=== PATIENT | female | born 1990 | race Caucasian/White ===

== ENCOUNTER 2017-08-15 17:10 | Emergency (ER) | payer OTHER ==
[2017-08-15 17:19] VITALS: BMI 28.5
--- NOTE | 2017-08-15 17:20 | PDOC ---
Rapid Medical Evaluation Time Seen by Provider: 08/15/17 17:16 Medical Evaluation: Allergies Allergy/AdvReac Type Severity Reaction Status Date / Time No Known Drug Allergies Allergy Verified 08/15/17 17:15 apples Allergy Severe Swelling Uncoded 08/15/17 17:15 kiwi Allergy Severe Swelling Uncoded 08/15/17 17:15 peaches Allergy Severe Swelling Uncoded 08/15/17 17:15 plums Allergy Severe Swelling Uncoded 08/15/17 17:15 strawberries Allergy Severe Swelling Uncoded 08/15/17 17:15 08/15/17 17:16 I have performed a brief in-person evaluation of this patient. The patient presents with a chief complaint of: Abd cramping today, no vag bleed , (s/p 1 spon AB), ~27 week , f/u with at [id number] Pertinent physical exam findings:Stable I have ordered the following:nothing, gets transferred to L&D The patient will proceed to the ED for further evaluation Discharge Disposition - Diagnosis Abdominal pain Qualifiers: Abdominal location: unspecified location Qualified Code(s): R10.9 - Unspecified abdominal pain - Referrals - Patient Instructions - Post Discharge Activity
[2017-08-15] MEDS ORDERED: DEXTROSE 5%-LACTATED RINGERS 500 ML IV ONE (18:10)
[2017-08-15 18:33] VITALS: BP 109/68; PULSE 86; TEMP 98.1
[2017-08-15] MEDS ORDERED: DEXTROSE 5%-LACTATED RINGERS 1,000 ML IV SCH (19:10)
[2017-08-15 20:20] LABS: URINE APPEARANCE CLEAR; URINE BILIRUBIN NEGATIVE (<2.0 mg/dL); URINE COLOR YELLOW; URINE GLUCOSE (UA) NEGATIVE (NEGATIVE); URINE KETONE 1+ (NEGATIVE); URINE LEUK ESTERASE NEGATIVE (NEGATIVE); URINE NITRITE NEGATIVE (NEGATIVE); URINE PROTEIN NEGATIVE (NEGATIVE); URINE UROBILINOGEN NEGATIVE mg/dL (0.2-1.0)
== END 2017-08-15 21:20 | disposition home or self-care (01) ==
LOC: JER 17:10
DX: O26.892 Other specified pregnancy related conditions, second trimester (principal); R10.9 Unspecified abdominal pain; Z3A.27 27 weeks gestation of pregnancy
CPT/HCPCS: 76801-TC; 76817-TC; 81003; 87086; 99281-25

== ENCOUNTER 2017-10-29 09:37 | Inpatient (IN) | payer OTHER ==
[~2017-10-29 09:37] MED LIST: CITRIC ACID/SODIUM CITRATE 30 ML UNIT-DOSE CUP PO ONE; ELECTROLYTE-148 SOLN 1,000 ML IV SCH
[2017-10-29] MEDS ORDERED: ELECTROLYTE-148 SOLN 1,000 ML IV SCH (09:59)
[2017-10-29 10:34] VITALS: BMI 31.4
[2017-10-29] MEDS ORDERED: PHENYLEPHRINE HCL 10 MG/1 ML SINGLE DOSE VIAL ONE (10:35)
[2017-10-29] MEDS ORDERED: ceFAZolin SODIUM 1 GM VIAL ONE (10:35)
[2017-10-29] MEDS ORDERED: SUCCINYLCHOLINE CHLORIDE 200 MG/10 ML VIAL ONE (10:36)
[2017-10-29] MEDS ORDERED: ePHEDrine SULFATE 50 MG/1 ML AMPULE ONE (10:36)
[2017-10-29] MEDS ORDERED: PROPOFOL 20 ML ONE (10:36)
[2017-10-29] MEDS ORDERED: morphine SULFATE/Preservative Free 0.5 MG/ML (1cc Syringe) ONE (10:36)
[2017-10-29] MEDS ORDERED: OXYTOCIN 20 UNITS in 0.9% NS 20 UNIT/1,000 ML INFUS.BAG IV ONE ×2 (10:54→14:41)
[2017-10-29] MEDS ORDERED: TUBERCULIN PPD 5 TU/0.1ML SYRINGE (IN PATIENT USE ONLY) ID ONE (11:15)
--- NOTE | 2017-10-29 11:39 | HP ---
Past Medical History - Admission Chief Complaint: Here for repeat c section History of Present Illness: 27 y/o female with SIUP at 37.2 weeks here for repeat c section. Pt diagnosed with cholestasis of (Bile acids 66) and pt desires sterillization/tubal ligation. Pt also wtih h/o anemia, s/p iron transfusions, Hgb 11.7 preop. Otherwise uncomlpicated. H/O c section X 2 for oligohydramnios. History Source: Patient, Medical Record - Past Medical History Cardiovascular: No: AFIB, CAD, HTN Pulmonary: No: Asthma, COPD Gastrointestinal: No: GERD Hepatobiliary: No: Hepatitis B, Hepatitis C Renal/: No: Renal Failure, UTI Reproductive: No: Ectopic , PID ...: 4 ...Para: 2 ...Term: 1 ...: 1 ...Spon : 1 ...Induced : 0 ...Multiple Gestation: 0 ...LMP: 02/10/17 ... Weeks Gestation by Dates: 37.2 ...EDC by Dates: 11/17/17 ...EDC by Sono: 11/14/17 Heme/Onc: Yes: Anemia Infectious Disease: No: HIV, MRSA, STD's Psych: No: Anxiety, Bipolar, Panic - Past Surgical History Past Surgical History: Yes: Hx Myomectomy: No Hx Transabdominal Cerclage: No - Smoking History Smoking history: Never smoked Have you smoked in the past 12 months: No - Alcohol/Substance Use Hx Alcohol Use: No - Social History History of Recent Travel: No Home Medications - Allergies Allergies/Adverse Reactions: Allergies Allergy/AdvReac Type Severity Reaction Status Date / Time No Known Drug Allergies Allergy Verified 10/29/17 10:42 apples Allergy Severe Swelling Uncoded 10/29/17 10:42 kiwi Allergy Severe Swelling Uncoded 10/29/17 10:42 peaches Allergy Severe Swelling Uncoded 10/29/17 10:42 plums Allergy Severe Swelling Uncoded 10/29/17 10:42 strawberries Allergy Severe Swelling Uncoded 10/29/17 10:42 - Home Medications Home Medications: Ambulatory Orders Ferrous Sulfate [Iron] 325 mg PO DAILY 10/21/17 Vit No.130/Iron/Folic [ Vitamins] 1 each PO DAILY 10/21/17 Review of Systems - Review of Systems Constitutional: reports: No Symptoms Eyes: reports: No Symptoms HENT: reports: No Symptoms Neck: reports: No Symptoms Cardiovascular: reports: No Symptoms Respiratory: reports: No Symptoms Gastrointestinal: reports: No Symptoms Genitourinary: reports: No Symptoms Breasts: reports: No Symptoms Reported Musculoskeletal: reports: No Symptoms Integumentary: reports: No Symptoms Neurological: reports: No Symptoms Endocrine: reports: No Symptoms Hematology/Lymphatic: reports: No Symptoms Psychiatric: reports: No Symptoms Physical Exam - Maternity Vital Signs: Vital Signs Temperature 97.8 F 10/29/17 09:37 Pulse Rate 101 H 10/29/17 09:37 Respiratory Rate 20 10/29/17 09:37 Blood Pressure 105/70 10/29/17 09:37 O2 Sat by Pulse Oximetry (%) Constitutional: Yes: Well Nourished, No Distress, Calm Eyes: Yes: Conjunctiva Clear, EOM Intact HENT: Yes: Atraumatic Neck: Yes: Supple Cardiovascular: Yes: Regular Rate and Rhythm Lungs: Clear to auscultation - Abdominal Exam/OB Fundal Height: 38 Number of Fetuses: Single Presentation: Vertex Contractions: No Category: I Accelerations: Uniform Decelerations: None - Vaginal Exam/OB Vaginal Bleediing: No Speculum Exam: No Amniotic Membrane Status: Intact Presentation: Vertex/Position - Physical Exam Psychiatric: Yes: Alert, Oriented Hemorrhage Risk Assessment - Risk Factors Medium Risk Factors: Yes: Prior , uterine surgery,or multiple laparotomies High Risk Factors: Yes: None Risk Score: 1 Risk Level: Medium Risk Problem List - Problems (1) Cholestasis during in third trimester Code(s): O26.613 - LIVER AND BILIARY TRACT DISORD IN , THIRD TRIMESTER ; K83.1 - OBSTRUCTION OF BILE DUCT (2) Encounter for sterilization Code(s): Z30.2 - ENCOUNTER FOR STERILIZATION Assessment/Plan 27 y/o with SIUP at 37.2 weeks. for repeat section and tubal ligation at 37.2 weeks for cholestasis of AFVSS FHTs reactive cholestasis of - can stop ursodiol s/p surgery h/o anemia NPO SCDs consents signed
[2017-10-29] MEDS ORDERED: ONDANSETRON 4 MG/2 ML VIAL IVPUSH PRN (12:20)
[2017-10-29] MEDS ORDERED: morphine SULFATE/Preservative Free 0.5 MG/ML (1cc Syringe) SPIN ONE (12:20)
[2017-10-29] MEDS ORDERED: METHYLERGONOVINE MALEATE 0.2 MG/1 ML AMP IM PRN (12:32)
--- NOTE | 2017-10-29 12:32 | OP ---
Operative Note - Note: Operative Date: 10/29/17 Pre-Operative Diagnosis: prior c section X 2, desire for sterilization Operation: repeat delivery, bilateral tubal ligation (modified lashawn) Findings: normal b/l tubes and ovaries Surgeon: Alexsandra Olivares Hunting [employer] Fishing Guide: Baldomero [place] Anesthesiologist/SPLITTER HEAD: Alejandro Martinez Anesthesia: Spinal Specimens Removed: placenta Estimated Blood Loss (mls): 600 Operative Report Dictated: Yes
--- NOTE | 2017-10-29 13:47 | OP ---
DATE OF OPERATION: 10/29/2017 PREOPERATIVE DIAGNOSIS: Single intrauterine at 37 and 0.2 weeks, prior section x2, desire for permanent sterilization and cholestasis of . POSTOPERATIVE DIAGNOSIS: Single intrauterine at 37 and 0.2 weeks, prior section x2, desire for permanent sterilization and cholestasis of . PROCEDURE: Repeat low transverse section, bilateral tubal ligation using modified Avel technique. SURGEON: Alexsandra Ellis DO POOL INSTALLER: VINI Niño. ANESTHESIA: Spinal by Alejandro Martinez MD COMPLICATIONS: None. ESTIMATED BLOOD LOSS: 600 mL. SPECIMENS: Placenta and a portion of left and right fallopian tubes. COUNTS: Sponge, needle, and instrument counts correct. DISPOSITION: Stable to PACU. BRIEF HISTORY AND PROCEDURE: The patient is a 27-year-old G4, P2 female with a history of 2 prior sections who has been here in the office throughout her and elected to undergo a repeat section. The patient also had expressed the desire for permanent sterilization and consents for bilateral tubal ligation were signed. The patient was admitted to [facility] on October 29, 2017 where consents were reconfirmed. The patient was admitted at 37 weeks for delivery secondary to cholestasis of . The patient was then taken back to the operating room and given spinal anesthesia by Dr. Alejandro Martinez. A Urena catheter was placed under sterile condition. She was placed in the dorsal supine position and a hard time-out was performed. A Pfannenstiel incision was created on the skin with a scalpel and carried through the underlying layer of rectus fascia with the scalpel. The fascia was then incised on either side of the midline with the scalpel and the fascial incision was extended in the superior layer direction sharply. The fascia was tented upwards and dissected off the underlying layer of the rectus muscle sharply and the musculature was identified and then elevated with Josselin clamps and sharply with the knife. The peritoneum was entered sharply and carefully dissected well to allow for delivery. The bladder blade was then inserted. A lower uterine segment window was appreciated. The transverse incision in the lower uterine segment was completed approximately 3 to 4 cm above the uterine window. This incision was extended in the superolateral direction bluntly. The infant was then delivered from the ADRIANO position without difficulty. Bilateral shoulders were delivered without difficulty. The cord was clamped twice and cut in between and the was taken to the warmer to be assessed by the Neonatology staff where it received Apgars scores of 9 and 9. The placenta was then delivered intact with a 3 vessel cord. The uterus was exteriorized and cleared of all amniotic membrane and debrided with a dry lap sponge. The hysterotomy was reapproximated with a double layered closure using 0-Biosyn in 2 running locked layers. The right fallopian tube was identified and traced to the fimbriated end, elevated with a Kalee clamp and the mid portion was tied off with free ties and excised. The same was repeated in the left fallopian tube. Bilateral ovaries were noted to be within normal limits. The posterior cul-de-sac was suctioned. The uterus was placed back into the abdomen. Bilateral gutters were inspected and cleared of all debris. The hysterotomy as well as both tubal ligation sites were noted to be hemostatic. The peritoneum was then reapproximated using 2-0 Chromic in a running fashion. The musculature was reapproximated with 2 interrupted sutures. The fascia was reapproximated using 1 Vicryl in a running fashion. The subcutaneous tissue was irrigated and reapproximated with several interrupted suture using 1 Vicryl and the skin was reapproximated subcuticularly with 3-0 Vicryl suture and Steri-Strips were applied. The patient tolerated the procedure well and was recovering in stable condition in the recovery room in labor and delivery at the time of this dictation. Sponge needle and instrument counts were reported as correct after the case. ALEXSANDRA ELLIS DO /[id number] MTDHema
[2017-10-29] MEDS: OXYTOCIN 20 UNITS in 0.9% NS 20 UNIT/1,000 ML INFUS.BAG IV SCH (14:51)
[2017-10-29] MEDS ORDERED: IBUPROFEN 800 MG/8 ML IJ IVPB PRN (16:49)
[2017-10-30] MEDS: OXYTOCIN 20 UNITS in 0.9% NS 20 UNIT/1,000 ML INFUS.BAG IV SCH ×2 (00:59→20:05)
[2017-10-30] MEDS: SIMETHICONE 80 MG TAB.CHEW (FP) PO PRN ×4 (05:55→21:31)
[2017-10-30] MEDS: IBUPROFEN 600 MG TABLET (FP) PO PRN ×4 (05:58→21:31)
[2017-10-30] MEDS: oxyCODONE HCL 5 MG TABLET PO PRN ×4 (05:58→21:32)
[2017-10-30 09:01] LABS: BASO % 0.3 % (0-2.0); EOS % 0.5 % (0-4.5); HEMOGLOBIN 9.7 GM/dL (10.7-15.3); LYMPH % 21.3 % (8-40); MCH 28.6 pg (25.7-33.7); MCHC 33.5 g/dl (32.0-36.0); MEAN CELL VOLUME 85.2 fl (80-96); MEAN PLT VOLUME 7.4 fl (7.5-11.1); MONO % 4.8 % (3.8-10.2); NEUT % 73.1 % (42.8-82.8); PLATELET COUNT 234 K/MM3 (134-434); RBC 3.41 M/mm3 (3.60-5.2); RDW 16.2 % (11.6-15.6); WHITE BLOOD COUNT 8.6 K/mm3 (4.0-10.0)
--- NOTE | 2017-10-30 09:48 | PN ---
Post Progress Note - Subjective Subjective: Pt seen/evaluated and doing well. Tolerating clears. Ambulating, voiding, no flatus yet. VB minimal. Type of Delivery: Repeat C/S Vital Signs: Vital Signs Temperature 97.9 F 10/30/17 06:00 Pulse Rate 71 10/30/17 06:00 Respiratory Rate 18 10/30/17 07:00 Blood Pressure 123/75 10/30/17 06:00 O2 Sat by Pulse Oximetry (%) 100 10/29/17 14:30 Uterus: Yes: Fundus Firm Incision: Yes: Dressing dry and intact Abdomen/GI: Yes: Abdomen soft Lochia: Yes: Rubra Lochia, amount: Small Extremities: Yes: Calves non-tender. No: Edema Perineum: Yes: Intact Activity: Ambulating - Labs Labs: CBC WBC 8.6 K/mm3 (4.0-10.0) 10/30/17 08:47 RBC 3.41 M/mm3 (3.60-5.2) L 10/30/17 08:47 Hgb 9.7 GM/dL (10.7-15.3) L 10/30/17 08:47 Hct 29.0 % (32.4-45.2) L D 10/30/17 08:47 MCV 85.2 fl (80-96) 10/30/17 08:47 MCH 28.6 pg (25.7-33.7) 10/30/17 08:47 MCHC 33.5 g/dl (32.0-36.0) 10/30/17 08:47 RDW 16.2 % (11.6-15.6) H 10/30/17 08:47 Plt Count 234 K/MM3 (134-434) 10/30/17 08:47 MPV 7.4 fl (7.5-11.1) L 10/30/17 08:47 Absolute Neuts (auto) 6.3 # 10/30/17 08:47 Neutrophils % 73.1 % (42.8-82.8) 10/30/17 08:47 Lymphocytes % 21.3 % (8-40) 10/30/17 08:47 Monocytes % 4.8 % (3.8-10.2) 10/30/17 08:47 Eosinophils % 0.5 % (0-4.5) 10/30/17 08:47 Basophils % 0.3 % (0-2.0) 10/30/17 08:47 Nucleated RBC % 0 % (0-0) 10/30/17 08:47 Problem List - Problems (1) Cholestasis during in third trimester Code(s): O26.613 - LIVER AND BILIARY TRACT DISORD IN , THIRD TRIMESTER ; K83.1 - OBSTRUCTION OF BILE DUCT (2) Encounter for sterilization Code(s): Z30.2 - ENCOUNTER FOR STERILIZATION Assessment/Plan Advance diet as tolerated PO pain meds routine post c section care pt doing well
[2017-10-30] MEDS: FERROUS SO4 325 MG TABLET (FP) PO SCH ×2 (11:16→21:31)
[2017-10-30] MEDS: PRENATAL VITAMINS W/ FOLIC ACID TABLET (FP) PO SCH (11:17)
--- NOTE | 2017-10-30 11:46 | PN ---
Progress Note (short form) - Note Progress Note: Anesthesia POD#1 S/P and BTL under spinal A and Duramorph VSS,no N/V,legs are strong,pain is under control. No complications seen. Sydney Clark MD.
[2017-10-30] MEDS ORDERED: BISACODYL 10 MG SUPP.RECT RC PRN (12:32)
[2017-10-31] MEDS: oxyCODONE HCL 5 MG TABLET PO PRN ×6 (01:09→23:30)
[2017-10-31] MEDS: SIMETHICONE 80 MG TAB.CHEW (FP) PO PRN ×6 (01:10→23:29)
[2017-10-31] MEDS: IBUPROFEN 600 MG TABLET (FP) PO PRN ×6 (01:10→23:30)
[2017-10-31] MEDS: FERROUS SO4 325 MG TABLET (FP) PO SCH ×2 (09:06→21:08)
[2017-10-31] MEDS: PRENATAL VITAMINS W/ FOLIC ACID TABLET (FP) PO SCH (09:06)
--- NOTE | 2017-10-31 13:23 | PN ---
Post Progress Note - Subjective Subjective: Came to see/evaluate pt. Pt asleep upon my arrival. NO acute events overnight per nursing, doing well. Pain controlled, tolerating diet. Ambulating, voiding, VB stable/moderate and decreasing per nursing. Type of Delivery: Repeat C/S Vital Signs: Vital Signs Temperature 97.4 F L 10/31/17 08:18 Pulse Rate 94 H 10/31/17 08:18 Respiratory Rate 18 10/31/17 08:18 Blood Pressure 115/69 10/31/17 08:18 O2 Sat by Pulse Oximetry (%) 100 10/29/17 14:30 Uterus: Yes: Fundus Firm Incision: Yes: Sutures intact Abdomen/GI: Yes: Abdomen soft Lochia: Yes: Rubra Lochia, amount: Small Perineum: Yes: Intact Activity: Ambulating - Labs Labs: CBC WBC 8.6 K/mm3 (4.0-10.0) 10/30/17 08:47 RBC 3.41 M/mm3 (3.60-5.2) L 10/30/17 08:47 Hgb 9.7 GM/dL (10.7-15.3) L 10/30/17 08:47 Hct 29.0 % (32.4-45.2) L D 10/30/17 08:47 MCV 85.2 fl (80-96) 10/30/17 08:47 MCH 28.6 pg (25.7-33.7) 10/30/17 08:47 MCHC 33.5 g/dl (32.0-36.0) 10/30/17 08:47 RDW 16.2 % (11.6-15.6) H 10/30/17 08:47 Plt Count 234 K/MM3 (134-434) 10/30/17 08:47 MPV 7.4 fl (7.5-11.1) L 10/30/17 08:47 Absolute Neuts (auto) 6.3 # 10/30/17 08:47 Neutrophils % 73.1 % (42.8-82.8) 10/30/17 08:47 Lymphocytes % 21.3 % (8-40) 10/30/17 08:47 Monocytes % 4.8 % (3.8-10.2) 10/30/17 08:47 Eosinophils % 0.5 % (0-4.5) 10/30/17 08:47 Basophils % 0.3 % (0-2.0) 10/30/17 08:47 Nucleated RBC % 0 % (0-0) 10/30/17 08:47 Other Findings, Remarks: exam per nursing Problem List - Problems (1) Cholestasis during in third trimester Code(s): O26.613 - LIVER AND BILIARY TRACT DISORD IN , THIRD TRIMESTER ; K83.1 - OBSTRUCTION OF BILE DUCT (2) Encounter for sterilization Code(s): Z30.2 - ENCOUNTER FOR STERILIZATION Assessment/Plan POD#2 s/p repeat c section and tubal sterilization regular PO pain meds routine post c section care pt doing well discharge home in a.m. if stable
[2017-10-31] MEDS: SENNOSIDES/DOCUSATE COMBO (SENNA PLUS) TABLET (UD) PO SCH (21:10)
[2017-11-01] MEDS: SIMETHICONE 80 MG TAB.CHEW (FP) PO PRN (03:35)
[2017-11-01] MEDS: oxyCODONE HCL 5 MG TABLET PO PRN (03:36)
[2017-11-01] MEDS: IBUPROFEN 600 MG TABLET (FP) PO PRN (03:37)
[2017-11-01 07:31] VITALS: BP 95/51; PULSE 70; TEMP 98.3
[2017-11-01 08:08] LABS: BASO % 0.3 % (0-2.0); HEMATOCRIT 27.5 % (32.4-45.2); HEMOGLOBIN 9.2 GM/dL (10.7-15.3); LYMPH % 33.6 % (8-40); MCH 28.7 pg (25.7-33.7); MCHC 33.7 g/dl (32.0-36.0); MEAN CELL VOLUME 85.3 fl (80-96); MEAN PLT VOLUME 7.5 fl (7.5-11.1); MONO % 5.7 % (3.8-10.2); NEUT % 57.4 % (42.8-82.8); PLATELET COUNT 277 K/MM3 (134-434); RBC 3.22 M/mm3 (3.60-5.2); RDW 16.1 % (11.6-15.6); WHITE BLOOD COUNT 5.9 K/mm3 (4.0-10.0)
--- NOTE | 2017-11-01 08:22 | DS ---
Physical Exam-MANAGER OF NETWORK Vital Signs: Vital Signs Temperature 98.3 F 11/01/17 07:29 Pulse Rate 70 11/01/17 07:29 Respiratory Rate 18 11/01/17 07:29 Blood Pressure 95/51 11/01/17 07:29 O2 Sat by Pulse Oximetry (%) 100 10/29/17 14:30 Constitutional: Yes: Well Nourished Eyes: Yes: Conjunctiva Clear HENT: Yes: Atraumatic Neck: Yes: Supple Cardiovascular: Yes: Regular Rate and Rhythm Respiratory: Yes: Regular Gastrointestinal: Yes: Normal Bowel Sounds Pelvis: Yes: WNL External Genitalia: Yes: Normal Vaginal Exam: Yes: Normal Cervix: Yes: Normal Uterus: Yes: Firm Wound/Incision: Yes: Clean/Dry, Well Approximated Neurological: Yes: Alert, Oriented ...Motor Strength: WNL Psychiatric: Yes: Alert, Oriented Labs: CBC, BMP 11/01/17 06:00 Delivery - Delivery Type of Anesthesia: Spinal Episiotomy/Laceration: None EBL (cc): 600 Delivery, Single - Stages of Labor Date of Delivery: 10/29/17 Time of Delivery: 11:59 Time Placenta Delivered: 13:00 - Condition of Cutter Inspector/Heel Seat Pounder Present: Yes Name: Shahzad Lion Infant Gender: Male Weight: 7 lb 13 oz Position: Left, OA Total Hours ROM (Hrs/Mins): 2 mins - 1 Minute Total Score: 9 5 Minutes Total Score: 9 - [place] Feeding Plan Initial Plan: Exclusive throughout hospitalization Discharge Summary Reason For Visit: Current Active Problems Cholestasis during in third trimester (Acute) Encounter for sterilization (Acute) Procedures: Principal: Repeat Hospital Course: Routine post op care Condition: Good - Instructions Diet, Activity, Other Instructions: Physical activity Resume your normal everyday activity as tolerated no heavy lifting or strenuous exercise until seen by your surgeon. You may walk unlimited amounts and climb stairs. You may resume driving the car when you feel safe and comfortable behind the wheel. No sexual activity as instructed. Wound care . If there are tapes on the skin leave them in place. They will peel off in the next 7 to 10 days. Do Not Peel them off. You may shower the day after surgery. If there are tapes present on the skin, you may shower over them. Diet There are no dietary restrictions. Eat healthy, high-fiber foods. Drink 6 to 8 glasses of liquid each day. This will assist in keeping your bowels regular. Pain management You may take Tylenol or Ibuprofen (for example, Motrin, Advil etc.)for mild pain. If any prescription medication is ordered should be taken as prescribed for moderate to severe pain. Call MD for any of the following: Severe pain not relieved by medication Fever of 101 or higher Excessive bleeding or drainage on dressing Inability to urinate Disposition: HOME - Home Medications Comprehensive Discharge Medication List: Ambulatory Orders Ferrous Sulfate [Iron] 325 mg PO DAILY 10/21/17 Vit No.130/Iron/Folic [ Vitamins] 1 each PO DAILY 10/21/17 Ibuprofen [Motrin -] 600 mg PO QID PRN #28 tablet 10/31/17 Oxycodone HCl/Acetaminophen [Percocet 5-325 mg Tablet -] 1 tab PO Q4H #30 tablet MDD 6 10/31/17
[2017-11-01] MEDS: FERROUS SO4 325 MG TABLET (FP) PO SCH (10:31)
[2017-11-01] MEDS: PRENATAL VITAMINS W/ FOLIC ACID TABLET (FP) PO SCH (10:31)
[2017-11-01] MEDS: SENNOSIDES/DOCUSATE COMBO (SENNA PLUS) TABLET (UD) PO SCH (10:31)
--- NOTE | 2017-11-07 17:52 | PATH ---
Surgical Pathology Report Patient Name: MAT SHEIKH [facility]. Rec. #: [id number] /Age/Gender: 1990 (Age: 27) / F Account: [id number] Location: [facility] OBS/FUDGER Taken: 10/29/2017 Received: 10/30/2017 Reported: 11/07/2017 Physicians: Alexsandra Olivares M.D. Specimen(s) Received A: PLACENTA B: RIGHT FALLOPIAN TUBE C: LEFT FALLOPIAN TUBE Clinical History 37.5 weeks gestation, repeat History of iron infusion during Final Diagnosis A. PLACENTA, SECTION: 495 g THIRD TRIMESTER PLACENTA WITH TRIVASCULAR UMBILICAL CORD AND UNREMARKABLE PLACENTAL MEMBRANES. B. FALLOPIAN TUBE, RIGHT, PARTIAL EXCISION: FULL LUMINAL PORTION OF UNREMARKABLE FALLOPIAN TUBE. C. FALLOPIAN TUBE, LEFT, PARTIAL EXCISION: FULL LUMINAL PORTION OF UNREMARKABLE FALLOPIAN TUBE. Electronically Signed Osiris Landa M.D. Gross Description A. The specimen is received fresh labeled placenta and is a 495 gram, 17.0 x 16.0 x 3.1 cm. placenta with attached membranes and umbilical cord. The attached membranes are anand, thick, cloudy and insert marginally. The umbilical cord measures 35 cm. in length and averages 1.5 cm. in diameter. The cord inserts centrally. No true knots or strictures are identified. Cut surface of the umbilical cord reveals 3 vessels. The surface is reynoso-blue with minimal fibrin deposition and appropriate caliber vessels. The maternal surface is red-brown with focal defects. Sectioning reveals red-brown, spongy parenchyma. No lesions are identified. Automotive Glass Installer sections are submitted in three cassettes as follows: 1- membrane rolls and umbilical cord; 2-3- full thickness sections of placenta. B. Received in formalin labeled "right fallopian tube," is a 2.2 cm in length portion of fallopian tube. No fimbriae are present. The outer surface is anand reynoso and smooth. Sectioning reveals an unremarkable lumen. Automotive Glass Installer sections are submitted in one cassette. C. Received in formalin labeled "left fallopian tube," is a 2.4 cm in length portion of fallopian tube. No fimbriae are present. The outer surface is anand-anderson and smooth. Sectioning reveals an unremarkable lumen. Automotive Glass Installer sections are submitted in one cassette. DL/11/06/2017 [facility]11/06/2017
== END 2017-11-01 12:05 | disposition home or self-care (01) | DRG 540 ==
LOC: JLDR 09:37 → J3W 15:13
PROVIDERS: ADMIT Obstetrics & Gynecology; ATTEND Obstetrics & Gynecology
PROC: 10D00Z0 Extraction of Products of Conception, High, Open Approach (ICD-10-PCS; principal; 2017-10-29)
PROC: 0UL70DZ Occlusion of Bilateral Fallopian Tubes with Intraluminal Device, Open Approach (ICD-10-PCS; 2017-10-29)
DX: O26.62 Liver and biliary tract disorders in childbirth (principal); K83.1 Obstruction of bile duct; O41.03X0 Oligohydramnios, third trimester, not applicable or unspecified; O34.211 Maternal care for low transverse scar from previous cesarean delivery; Z3A.37 37 weeks gestation of pregnancy; Z37.0 Single live birth; Z30.2 Encounter for sterilization
CPT/HCPCS: 36415; 85025; 88302-TC; 88307-TC